=== PATIENT | male | born 1960 | race Hispanic/Latino ===

== ENCOUNTER 2019-08-16 19:08 | Inpatient (IN) | payer MEDICARE, OTHER ==
[~2019-08-16] VITALS: Ht 165.1 cm; Wt 77.1 kg
--- OUTSIDE RECORDS SUMMARY | 2019-08-16 19:30 | XMS REPORT ---
[facility] [place] Address Unknown Phone Unavailable Care Team Providers Care Compound Filler Name Role Phone Unavailable Unavailable Payers Payer Name Policy Type Policy Number Effective Date Expiration Date Problems This patient has no known problems. Allergies, Adverse Reactions, Alerts Allergy Name Allergy Type Status Severity Reaction(s) Onset Date Inactive Date Treating Clinician Comments No Known Allergies DA Active U 2019-08-16 00:00:00 No Known Allergies DA Active U 2013-09-17 00:00:00 Medications This patient has no known medications. Results Test Description Test Time Test Comments Text Results Atomic Results Result Comments - CTA NECK 2019-08-16 18:13:00 Name: BRENT POWELL [facility] FSED : 1960 Age/S: 59 / M [address] [facility] Unit #: [id number] Loc: [address] Phys: Luis Li MD [place], [place] [address] Acct: [id number] Dis Date: Status: REG ER PHONE #: Exam Date: 08/16/2019 1549 FAX #: Reason: stroke EXAMS: CPT CODE: [id number] CTA NECK 25928 HISTORY: stroke TECHNIQUE: Cerebral and Cervical CT angiography was acquired in the axial plane after bolus IV administration of iodinated contrast. Multiplanar, maximum intensity projection (MIP), and volume rendered reconstructions were created on the 3-D workstation. Automated exposure control for dose reduction. COMPARISON: Noncontrast CT brain earlier today at 1:44 PM FINDINGS: Bilateral distal cervical ICAs are patent. Mild atherosclerotic vascular calcification of the bilateral cavernous ICA segments. Bilateral petrous and supraclinoid ICA segments are patent. Normal enhancement of the bilateral ophthalmic arteries. Bilateral A1 and distal SANCHEZ segments are patent. Anterior communicating artery is present. Bilateral M1 and distal MCA branches are patent. No aneurysm. Bilateral distal vertebral arteries are patent. Basilar artery is patent. Bilateral PICAs and SCAs are patent. Normal appearance of the basilar tip. Bilateral P1 and distal SHOE PARTS CASER segments are patent. Bilateral posterior communicating arteries are present however the right posterior commuting artery is hypoplastic. No aneurysm. Dural venous sinuses and proximal internal jugular veins are patent. Reversal of cervical lordosis is present. However there is no acute fracture or spondylolisthesis of the cervical spine. Please see the prior noncontrast CT scan of the brain for additional nonvascular findings. IMPRESSION: Hypoplastic right posterior communicating artery. Otherwise normal CT angiography of the head and neck. Location: [facility] at 1813 Reported and signed by: Ron Fleming MD PAGE 1 Signed Report (CONTINUED) Name: BRENT POWELL FSED : 1960 Age/S: 59 / M [address] [facility] [address] Unit #: [id number] Loc: [address] Phys: Luis Li MD [place] [address] Acct: [id number] Dis Date: Status: REG ER PHONE #: Exam Date: 08/16/2019 1544 FAX #: Reason: stroke EXAMS: CPT CODE: [id number] CTA NECK 50428 <Continued> CC: Luis Li MD Technologist:Sae Thapa CTDI: DLP: Trnscb Date/Time: 08/16/2019 (1812) t.[email or web address].RR31/[email or web address].RR31 Orig Print D/T: S: 08/16/2019 (1815) PAGE 2 Signed Report - CTA HEAD 2019-08-16 18:13:00 Name: BRENT POWELL [employer] FSED : 1960 Age/S: 59 / M [address] [facility] [address] Unit #: [id number] Loc: [address] Phys: Luis Li MD [place], [place] [address] Acct: [id number] Dis Date: Status: REG ER PHONE #: Exam Date: 08/16/2019 1544 FAX #: Reason: stroke EXAMS: CPT CODE: [id number] CTA HEAD 15575 HISTORY: stroke TECHNIQUE: Cerebral and Cervical CT angiography was acquired in the axial plane after bolus IV administration of iodinated contrast. Multiplanar, maximum intensity projection (MIP), and volume rendered reconstructions were created on the 3-D workstation. Automated exposure control for dose reduction. COMPARISON: Noncontrast CT brain earlier today at 1:44 PM FINDINGS: Bilateral distal cervical ICAs are patent. Mild atherosclerotic vascular calcification of the bilateral cavernous ICA segments. Bilateral petrous and supraclinoid ICA segments are patent. Normal enhancement of the bilateral ophthalmic arteries. Bilateral A1 and distal SANCHEZ segments are patent. Anterior communicating artery is present. Bilateral M1 and distal MCA branches are patent. No aneurysm. Bilateral distal vertebral arteries are patent. Basilar artery is patent. Bilateral PICAs and SCAs are patent. Normal appearance of the basilar tip. Bilateral P1 and distal SHOE PARTS CASER segments are patent. Bilateral posterior communicating arteries are present however the right posterior commuting artery is hypoplastic. No aneurysm. Dural venous sinuses and proximal internal jugular veins are patent. Reversal of cervical lordosis is present. However there is no acute fracture or spondylolisthesis of the cervical spine. Please see the prior noncontrast CT scan of the brain for additional nonvascular findings. IMPRESSION: Hypoplastic right posterior communicating artery. Otherwise normal CT angiography of the head and neck. Location: [facility] at 1813 Reported and signed by: Ron Fleming MD PAGE 1 Signed Report (CONTINUED) Name: BRENT POWELL [facility] FSED : 1960 Age/S: 59 / M [address] [facility] Unit #: [id number] Loc: [address] Phys: Luis Li MD [place], [place] [address] Acct: [id number] Dis Date: Status: REG ER PHONE #: Exam Date: 08/16/2019 1541 FAX #: Reason: stroke EXAMS: CPT CODE: [id number] CTA HEAD 23131 <Continued> CC: Luis Li MD Technologist:Sae Thapa CTDI: DLP: Trnscb Date/Time: 08/16/2019 (1813) t.[email or web address].RR31/[email or web address].SDR.RR31 Orig Print D/T: S: 08/16/2019 (0817) PAGE 2 Signed Report BASIC METABOLIC PANEL 2019-08-16 15:00:00 SODIUM (test code=NA) 145 mmol/L 128-145 POTASSIUM (test code=K) 3.7 mmol/L 3.5-5.1 CHLORIDE (test code=CL) 107.0 mmol/L 98-107 CARBON DIOXIDE (test code=CO2) 29.8 mmol/L 22-29 ANION GAP (test code=GAP) 12 mmol/L 10-20 GLUCOSE (test code=GLU) 108 mg/dL 70-110 BLOOD UREA NITROGEN (test code=BUN) 16 mg/dL 7-22 GLOMERULAR FILTRATION RATE (test code=GFR) > 60 mL/min >=60 Estimated GFR by using Modified MDRD formula.Chronic kidney disease is defined as either kidney damageor GFR <60 mL/min/1.73 m2 for >3 months. CREATININE (test code=CREAT) 1.15 mg/dL 0.55-1.3 BUN/CREATININE RATIO (test code=BUN/CREA) 13.9 10-20 CALCIUM (test code=CA) 8.3 mg/dL 8.0-10.5 [id number] 15:00:00* Test Item Value Reference Range Comments TROPONIN-I (test code=TROPI) <0.015 ng/mL 0.00-0.056 BASIC METABOLIC [id number] 14:11:00* Test Item Value Reference Range Comments SODIUM (test code=NA) 145 mmol/L 128-145 POTASSIUM (test code=K) 3.7 mmol/L 3.5-5.1 CHLORIDE (test code=CL) 107.0 mmol/L 98-107 CARBON DIOXIDE (test code=CO2) 29.8 mmol/L 22-29 ANION GAP (test code=GAP) 12 mmol/L 10-20 GLUCOSE (test code=GLU) 108 mg/dL 70-110 BLOOD UREA NITROGEN (test code=BUN) 16 mg/dL 7-22 GLOMERULAR FILTRATION RATE (test code=GFR) > 60 mL/min >=60 Estimated GFR by using Modified MDRD formula.Chronic kidney disease is defined as either kidney damageor GFR <60 mL/min/1.73 m2 for >3 months. CREATININE (test code=CREAT) 1.15 mg/dL 0.55-1.3 BUN/CREATININE RATIO (test code=BUN/CREA) 13.9 10-20 CALCIUM (test code=CA) 8.3 mg/dL 8.0-10.5 [id number] 14:11:00* Test Item Value Reference Range Comments TROPONIN-I (test code=TROPI) ng/mL 0-0.045 CBC W/AUTO [id number] 14:10:00* Test Item Value Reference Range Comments WHITE BLOOD CELL (test code=WBC) 9.4 K/mm3 4.5-12.5 RED BLOOD CELL (test code=RBC) 5.30 mill/mm3 4.0-5.8 HEMOGLOBIN (test code=HGB) 16.0 gram/dL 13.0-17.5 HEMATOCRIT (test code=HCT) 48.9 % 42.0-52.0 MEAN CELL VOLUME (test code=MCV) 92.3 fL 80-98 MEAN CELL HGB (test code=MCH) 30.2 picogram 27.0-33.0 MEAN CELL HGB CONCETRATION (test code=MCHC) 32.7 gram/dL 33.0-36.0 RED CELL DISTRIBUTION WIDTH (test code=RDW) 14.1 % 11.6-16.2 RED CELL DISTRIBUTION WIDTH SD (test code=RDW-SD) 48.8 fL 37.0-51.0 PLATELET COUNT (test code=PLT) 210 K/mm3 150-450 MEAN PLATELET VOLUME (test code=MPV) 9.3 fL 6.7-11.0 NEUTROPHIL % (test code=NT%) 69.9 % 39.0-69.0 LYMPHOCYTE % (test code=LY%) 24.2 % 25.0-55.0 MONOCYTE % (test code=MO%) 4.9 % 0.0-10.0 EOSINOPHIL % (test code=EO%) 0.3 % 0.0-5.0 BASOPHIL % (test code=BA%) 0.5 % 0.0-1.0 NEUTROPHIL # (test code=NT#) 6.59 K/mm3 1.8-7.7 LYMPHOCYTE # (test code=LY#) 2.28 K/mm3 1.0-5.0 MONOCYTE # (test code=MO#) 0.46 K/mm3 0-0.8 EOSINOPHIL # (test code=EO#) 0.03 K/mm3 0.0-0.5 BASOPHIL # (test code=BA#) 0.05 K/mm3 0.0-0.2 MANUAL DIFF REQUIRED (test code=MDIFF) NO PROTHROMBIN [id number] 14:10:00* Test Item Value Reference Range Comments PROTHROMBIN TIME PATIENT (test code=PTP) 9.9 seconds 9.0-13.0 INTERNATIONAL NORMAL RATIO (test code=INR) 1.0 0.8-1.2 The therapeutic range for oral anticoagulant therapy formost indications is an international normalized ratio (INR)of between 2.0 and 3.0. The recommended therapeutic INRrange for various clinical situations is listed below: Clinical Situation INR range Pulmonary e mbolism treatment (2.0-3.0)Venous thrombosis treatmentVenous thrombosis prophylaxis (high risk surgery)Prevention of systemic embolism from: Acute myocardial infarction Valvular heart disease Atrial fibrillation Mechanical prosthetic heart valves (2.5-3.5) IS PATIENT ON ANTICOAGULANTS? NTHROMBOPLASTIN TIME [id number] 14:10:00* Test Item Value Reference Range Comments THROMBOPLASTIN TIME PARTIAL (test code=PTT) 25.3 seconds 25.5-34.3 Therapeutic Range for patients on Heparin Therapy is 2 to2.5 times their baseline PTT level. IS PATIENT ON ANTICOAGULANTS? N- XR CHEST 1 [id number] 14:06:00 FAX: Luis Li [phone] [place]: [place] [address]: REG Name: BRENT ASHTON FSED : [birth year] Age/S: 59/M [address] [facility] [address] Unit #: [id number] Loc: [facility] [address] Phys: Luis Li MD [place], [place] [address] Acct: [id number] Dis Date: Status: REG ER PHONE #: Exam Date: 08/16/2019 1350 FAX #: Reason: CODE STROKE EXAMS: CPT CODE: [id number] XR CHEST 1 V 44709 REASON FOR EXAM: CODE STROKE Exam Order Date: 08/16/2019 1:42 PM Ordering M.D.: Luis Li MD PROCEDURE: - XR CHEST 1 V COMPARISON: None FINDINGS: The lungs are clear. There is no pleural effusion or pneumothorax. Pulmonary vascularity is within normal limits. Cardiomediastinal silhouette is normal in size for technique. The mediastinal contours are within normal limits. Musculoskeletal structures are within normal limits. The visuali zed upper abdomen is within normal limits. IMPRESSION: No acute cardiopulmonary process. Location: [facility] at 1406 Reported and signed by: Ron Fleming MD CC: Luis Li MD Technologist: Sae Thapa Trnscrd Date/Time/By: 08/16/2019 (5670) : By: Dior [id number] Orig Print D/T: S: 08/16/2019 (3099) HERMINIA GUERRIER 1 Signed Report - CT HEAD/BRAIN W/O [id number] 13:56:00 Name: BRENT POWELL FSED : 1960 Age/S: 59 / M [address] [facility] [address] Unit #: [id number] Loc: [address] Phys: Luis Li MD [place], [place] [address] Acct: [id number] Dis Date: Status: PRE ER PHONE #: Exam Date: 08/16/2019 1350 FAX #: Reason: stroke EXAMS: CPT CODE: [id number] CT HEAD/BRAIN W/O CONT 33795 HISTORY: Stroke. COMPARISON: None available. CT brain without contrast: Automated exposure control. No acute intracranial bleeds or extra-axial collections are noted. No acute territorial vascular infarction is noted. Old infarct in the posterior limb of the left internal capsule without mass effect. The sulci, gyri, ventricles and subarachnoid spaces and the basilar cisterns are normal for patient's age. No herniation or hydrocephalus or midline shift is noted. Mild periventricular ischemic gliosis is noted. Age- appropriate atrophy is noted as well. Portions of the visualized paranasal sinuses are normal. No obvious bony calvarial defect is noted. IMPRESSION: No acute intracranial bleeds or extra-axial collections. No acute territorial vascular infarction. No herniation or hy drocephalus or midline shift. Chronic white matter ischemic d isease and atrophy . These findings were discussed with Dr. Ruben anderson at 1:54 PM. FOR INTERNAL CODING PUR POSES ONLY RESULT CODE: CVR Electronically S igned by Demond Lorenz on 08/16/2019 at 1356 Reporte d and signed by: Joni Lorenz M.D. PAGE 1 Sign ed Report (CONTINUED) Name: BRENT POWELL [facility] FSED : 1960 Age/S: 59 / M [address] [facility] [address] Unit #: [id number] Loc: [address] Phys: Luis Li MD [place], [place] [address] Acct: [id number] Dis Date: Status: PRE ER PHONE #: Exam Date: 08/16/2019 1350 FAX #: Reason: stroke EXAMS: CPT CODE: [id number] CT HEAD/BRAIN W/O CONT 73321 <Continued> CC: Luis Li MD Technologist:Sae Thapa CTDI: DLP: Trnscb Date/Time: 08/16/2019 (0536) t.KLAUSR.TH4 Orig Print D/T: S: 08/16/2019 (3334) PAGE 2 Signed Report
[2019-08-16 19:45] VITALS: BP 161/103
[2019-08-16] MEDS ORDERED: DEXTROSE 50% SYRINGE 50 ML IV PRN (19:45)
[2019-08-16 20:00] VITALS: BP 143/94
[2019-08-16 20:01] LABS: BASOPHILS # (AUTO) 0.1 (0.0-0.1); BASOPHILS % 0.6 % (0.0-1.0); EOSINOPHILS % 0.4 % (0.0-6.0); HEMATOCRIT 47.6 % (38.2-49.6); HEMOGLOBIN 15.3 g/dL (14.0-18.0); LYMPHOCYTES # (AUTO) 3.2 (1.0-3.2); LYMPHOCYTES % 37.1 % (18.0-39.1); MEAN CORPUSCULAR HEMOGLOBIN 29.8 pg (28-32); MEAN CORPUSCULAR HGB CONC 32.1 g/dL (31-35); MEAN CORPUSCULAR VOLUME 92.6 fL (81-99); MONOCYTES # (AUTO) 0.5 (0.2-0.8); MONOCYTES % 5.8 % (4.4-11.3); NEUTROPHILS # (AUTO) 4.8 (2.1-6.9); NEUTROPHILS % 55.9 % (38.7-80.0); PLATELET COUNT 223 x10e3/uL (140-360); RED BLOOD COUNT 5.14 x10e6/uL (4.3-5.7); RED CELL DISTRIBUTION WIDTH 14.2 % (11.7-14.4)
[2019-08-16 20:13] VITALS: BP 140/102
[2019-08-16] MEDS: SODIUM CHLORIDE 0.9% 1000ML 1,000 ML IV SCH (20:14)
[2019-08-16 20:22] LABS: ALBUMIN 3.5 g/dL (3.5-5.0); ALBUMIN/GLOBULIN RATIO 1.1 (0.8-2.0); ANION GAP 14.7 mmol/L (8-16); CALCIUM 9.5 mg/dL (8.4-10.2); CHOL/HDL RATIO 4.3 (3.9-4.7); CREATININE, SERUM 2.53 mg/dL (0.72-1.25); POTASSIUM 3.7 mmol/L (3.5-5.1)
--- NOTE | 2019-08-16 20:26 | Diagnostic Imaging Report ---
Examination: Single AP view of the chest. COMPARISON: None. INDICATION: Ischemic stroke DISCUSSION: Lines/tubes: None. Lungs: The lungs are well inflated and clear. No pneumonia or pulmonary edema. Pleura: No pleural effusion or pneumothorax. Heart and mediastinum: The heart and the mediastinum are unremarkable. Bones and soft tissues: No acute bony abnormalities. IMPRESSION: 1. No acute cardiopulmonary abnormalities. Signed by: Dr. Ryan Abbasi M.D. on 08/16/2019 8:23 PM
[2019-08-16 20:42] LABS: ERYTHROCYTE SEDIMENTATION RATE 6 mm/hr (0-13); THYROID STIMULATING HORMONE 1.995 uIU/mL (0.350-4.940)
[2019-08-16 21:00] VITALS: BP 144/96
[2019-08-16] MEDS ORDERED: INSULIN LISPRO 100 UNIT/1 ML 3ML VIAL SQ SCH (21:00)
[2019-08-16 22:00] VITALS: BP 144/89
[2019-08-16] MEDS ORDERED: LISINOPRIL20 MG PO (22:58)
[2019-08-16] MEDS ORDERED: XULTOPHY 100 UNI3 ML SQ (22:58)
[2019-08-16] MEDS ORDERED: LIPITOR20 MG PO (22:58)
[2019-08-16] MEDS ORDERED: REGLAN10 MG PO (22:58)
[2019-08-16 23:00] VITALS: BP 132/92
[2019-08-17] VITALS (19 sets, daily range): BP systolic 102–154; BP diastolic 59–99
[2019-08-17 00:37] LABS: CREATINE KINASE MB 0.8 ng/mL (0-5.0)
[2019-08-17 04:49] LABS: BASOPHILS % 0.6 % (0.0-1.0); EOSINOPHILS # (AUTO) 0.1 (0.0-0.4); EOSINOPHILS % 1.3 % (0.0-6.0); HEMATOCRIT 44.7 % (38.2-49.6); HEMOGLOBIN 14.5 g/dL (14.0-18.0); LYMPHOCYTES # (AUTO) 3.1 (1.0-3.2); LYMPHOCYTES % 43.3 % (18.0-39.1); MEAN CORPUSCULAR HEMOGLOBIN 30.1 pg (28-32); MEAN CORPUSCULAR HGB CONC 32.4 g/dL (31-35); MEAN CORPUSCULAR VOLUME 92.7 fL (81-99); MONOCYTES # (AUTO) 0.6 (0.2-0.8); MONOCYTES % 8.1 % (4.4-11.3); NEUTROPHILS # (AUTO) 3.3 (2.1-6.9); NEUTROPHILS % 46.6 % (38.7-80.0); PLATELET COUNT 226 x10e3/uL (140-360); RED BLOOD COUNT 4.82 x10e6/uL (4.3-5.7); RED CELL DISTRIBUTION WIDTH 14.1 % (11.7-14.4)
[2019-08-17 05:15] LABS: ALANINE AMINOTRANSFERASE 22 IU/L (0-55); ALBUMIN 3.1 g/dL (3.5-5.0); ALBUMIN/GLOBULIN RATIO 1.1 (0.8-2.0); ALKALINE PHOSPHATASE 64 IU/L (40-150); ANION GAP 15.2 mmol/L (8-16); BLOOD UREA NITROGEN 11 mg/dL (7-26); BUN/CREATININE RATIO 10 (6-25); CALCIUM 9.2 mg/dL (8.4-10.2); CARBON DIOXIDE 26 mmol/L (22-29); CHLORIDE 111 mmol/L (98-107); CREATININE, SERUM 1.06 mg/dL (0.72-1.25); EST GLOMERULAR FILTRATION RATE > 60 ML/MIN (60-); GLUCOSE 104 mg/dL (74-118); POTASSIUM 4.2 mmol/L (3.5-5.1); SODIUM 148 mmol/L (136-145)
[2019-08-17 05:21] LABS: CREATINE KINASE MB 1.8 ng/mL (0-5.0)
[2019-08-17] MEDS: SODIUM CHLORIDE 0.9% 1000ML 1,000 ML IV SCH ×2 (06:02→16:12)
[2019-08-17] MEDS ORDERED: LISINOPRIL 20 MG TAB PO SCH (09:00)
[2019-08-17] MEDS ORDERED: METOCLOPRAMIDE HCL 10 MG TAB PO SCH (09:00)
[2019-08-17] MEDS ORDERED: DORZOLAMIDE-TIM10 ML OU (10:00)
[2019-08-17] MEDS ORDERED: AZOPT10 ML OU (10:00)
--- NOTE | 2019-08-17 11:11 | History and Physical ---
CHIEF COMPLAINT: Right-sided weakness. HISTORY OF PRESENT ILLNESS: This is a 59-year-old man who presented to an outside free-standing emergency room with sudden onset of right-sided weakness. noted facial drooping as well as weakness in his right arm in his right leg. Apparently, the patient was so weak, he could not stand. The symptoms did resolve while he was in the free-standing emergency room. The patient underwent a CT of the brain at the free-standing emergency room that revealed carotid atherosclerosis, otherwise was unremarkable. The patient, however, was found to have a slightly elevated BUN and creatinine of 16 and 1.15 respectively. The patient also underwent a CT of the brain that revealed chronic white matter ischemic disease and atrophy, otherwise was unimpressive. The patient's initial cardiac enzymes were also negative. The decision was made to transfer the patient to [facility]. On arrival to this hospital last night on August 16, 2019, the patient was found to have BUN and creatinine of 9 and 2.53 respectively. This morning's BUN and creatinine were 11 and 1.06 respectively. He did receive intravenous fluids overnight. The patient has undergone two sets of troponin I since he has been here and they have been negative. Chest x-ray performed this morning was unremarkable. The patient was found to have an LDL cholesterol 77 mg/dL. Hemoglobin A1c was 6.1%. REVIEW OF SYSTEMS: GENERAL: Weight has been stable. No fever or chills. The patient was confused yesterday, but it did resolve. HEENT: No headaches. He does have visual deficits secondary to his advanced diabetic retinopathy. He does blink his eyes excessively, but this is a chronic finding. CARDIOVASCULAR/CHEST: No chest pain. No shortness of breath or cough. No palpitations. GI: No nausea, vomiting, or constipation. : No UTI symptoms. NEUROMUSCULAR: The patient had right arm and right leg weakness as well as right facial drooping according to family members. The patient also was confused, but all these deficits resolved. ALLERGIES: NO KNOWN DRUG ALLERGIES. FAMILY HISTORY: Type 2 diabetes mellitus. SOCIAL HISTORY: He is , lives with . He is currently disabled. No history of tobacco or alcohol use. SURGICAL HISTORY: 1. Left eye shunt placement. 2. Bilateral cataract surgery. 3. Monthly ocular injections because of the patient's diabetic retinopathy. PAST MEDICAL HISTORY: 1. Type 2 diabetes mellitus (diagnosed at age 28). 2. Severe diabetic retinopathy with resulting macular edema. 3. Hypertensive heart disease. 4. Hyperlipidemia. 5. Diabetic peripheral neuropathy. 6. Mild obesity. 7. Diabetic gastroparesis. HOME MEDICATIONS: 1. Lisinopril 20 mg daily. 2. Atorvastatin 80 mg at bedtime. 3. Combigan 0.2%/0.5% one drop to both eyes twice a day. 4. Xultophy (Tresiba/Victoza) 50 units/1.8 mg subcutaneous daily (this is a new medication). 5. Metoclopramide 5 mg p.o. t.i.d. (the patient has not started this medication yet). PHYSICAL EXAMINATION: GENERAL: He is awake. He is alert. He seems to be at his cognitive state. Mental status seemed to be his baseline. VITAL SIGNS: The patient's weight is 170 pounds. Height is 5 feet 5 inches. BMI is 30. Blood pressure at this time is 148/96, pulse is 92, respiratory rate is 22, oxygen saturation 98% on room air, and temperature is 97.8. INTEGUMENT: Skin is warm and dry. No pallor, jaundice, or diaphoresis. HEENT: Anicteric sclerae. Moist mucous membranes. No facial drooping or dysarthria is appreciated. He does blink his eyes excessively. This is a chronic finding. NECK: Supple. No evidence of jugular venous distention. CARDIOVASCULAR: Distant heart sounds. Tachycardic rate with regular rhythm. The patient has an S4 gallop. LUNGS: No rales. No rhonchi. No wheezes. ABDOMEN: Mildly obese, but benign. EXTREMITIES: No edema or deformity. NEUROLOGIC: He has normal gait. No cerebellar deficits appreciated. No obvious dysdiadochokinesia. The patient has intact zhlmmx-ek-oncs. Negative Romberg sign. The patient has some difficulty with louxkf-ev-hqov, but it is probably compromised due to his visual deficits. He has no pinprick sensation to plantar aspect of his bilateral feet, but this is a chronic finding. DIAGNOSES: 1. Transient ischemic attack, likely. 2. Hypertensive heart disease. 3. Type 2 diabetes mellitus. 4. Diabetic peripheral neuropathy. 5. Diabetic retinopathy (severe). 6. Diabetic gastroparesis. 7. Acute renal insufficiency, resolving. 8. Dyslipidemia. PLAN: 1. Consult neurology. 2. Order 2D echocardiogram. 3. Order carotid Doppler ultrasound. 4. Gentle intravenous fluids. 5. Hold lisinopril since he did experience acute renal insufficiency. 6. We will continue statin therapy in the form atorvastatin. 7. We will likely order MRI of the brain. I spent 75 minutes in the care of this intensive care unit patient. MD CLOVER Cochran/CHRISTOPH /[id number] MTDD
--- NOTE | 2019-08-17 12:01 | Consultation ---
DATE OF CONSULTATION: Critical Care Consultation REASON FOR CONSULT: ICU management. HISTORY OF PRESENT ILLNESS: Mr. Guzmán is a 59-year-old male, who presented to the free-standing ER with complaints of right-sided facial droop, unable to talk. The patient was brought in by his . The patient has dysarthria, facial droop. Right-sided weakness, however, all symptoms are resolved now. His saw the patient at 8 a.m. in the morning and he was normal and then she slept again and next time she saw the patient around noon with these symptoms. He denies any nausea, vomiting, or diarrhea. He has a history of diabetes and hypertension with diabetic neuropathy, retinopathy, glaucoma, and cataract. REVIEW OF SYSTEMS: GENERAL: Denies any fever or chills. HEAD: Denies any head trauma. ENT: Denies any earaches. CVS: Denies any chest pain. RESPIRATORY: Denies any shortness of breath. GI: Denies any nausea or vomiting. The rest of the review of systems are negative except as in HPI. PAST MEDICAL HISTORY: Hypertension, diabetes, hyperlipidemia, glaucoma, cataract, peripheral neuropathy. FAMILY AND SOCIAL HISTORY: He does not smoke. Does not drink. PHYSICAL EXAMINATION: VITAL SIGNS: Temperature 97.8, pulse of 94, blood pressure 147/95, respiratory rate of 18, and O2 saturation 97% on room air. HEENT: Head is atraumatic, normocephalic. The patient is legally blind in both eyes and has eyelid drooping and frequent blinking of the eyes. NECK: Supple. No JVD. Oral mucosa is dry. CHEST: Clear to auscultation bilaterally. No wheezing. No crackles. HEART: S1, S2 audible. ABDOMEN: Soft, nontender. EXTREMITIES: No clubbing, cyanosis, or edema. NEUROLOGICAL: He is awake, alert, following commands. Responds to questions appropriately. LABORATORY DATA: White count of 7000, hemoglobin 14.5. Chemistry is within normal limits. Troponin is normal. The patient had a workup done at [facility], his CT head was normal. The patient had a CT of the neck, which was negative as well. ASSESSMENT AND PLAN: A 59-year-old male presented with possible transient ischemic attack, stroke. CT head is negative. Currently, the patient is asymptomatic. PLAN: Neurology consult. Physical therapy evaluation and treatment. The patient is already on Lipitor and lisinopril. Okay to be transferred out of ICU if okay with other services. CC time spent 40 min MD PETER Douglas/CHRISTOPH /[id number] SHELBY
[2019-08-17 12:45] LABS: CREATINE KINASE MB 1.8 ng/mL (0-5.0)
--- NOTE | 2019-08-17 13:35 | NUR ---
PERIODS OF APNEA NOTED WHEN SLEEPING
--- NOTE | 2019-08-17 13:59 | NUR ---
PT DISCUSSED IN ROUNDS, MED SURG DOWN GRADE ORDER GIVEN, DR CHURCHILL TO SEE PT TONIGHT FOR POSSIBLE TIA, CONSULT FOR SHUI WITH DOPPLER AND ECHO FROM THIS MORNING.
[2019-08-17] MEDS: INSULIN LISPRO 100 UNIT/1 ML 3ML VIAL SQ SCH ×2 (15:32→21:05)
--- NOTE | 2019-08-17 16:00 | NUR ---
patient on portable radiation monitor. awaiting call back when room 208 clean for transfer
[2019-08-17] MEDS: FAMOTIDINE 20 MG TAB PO SCH (17:00)
[2019-08-17] MEDS: BRINZOLAMIDE 1% OPTH SUSP 10 ML BTL OU SCH (17:00)
[2019-08-17] MEDS ORDERED: DORZOLAMIDE/TIMOLOL/PF 1 EACH DROPERETTE OP SCH (17:00)
[2019-08-17] MEDS ORDERED: ENOXAPARIN SOD INJ 40 MG/0.4 ML SYR SC SCH (17:00)
[2019-08-17] MEDS: DORZOLAMIDE/TIMOLOL (OPTH SOL) 10 ML DRPETTE OP SCH (17:00)
[2019-08-17] MEDS ORDERED: NON-FORMULARY MEDICATION (Dorzolamide Hcl/Timolol Maleat (Dorzolamide-Timolol Eye Drops) 1 OU SCH (17:00)
[2019-08-17] MEDS ORDERED: ATORVASTATIN 40 MG TAB PO SCH (21:00)
[2019-08-17] MEDS ORDERED: ATORVASTATIN 20 MG TAB PO SCH (21:00)
[2019-08-18] VITALS: BP 156/103
--- NOTE | 2019-08-18 03:31 | Consultation ---
DATE OF CONSULTATION: 08/17/2019 Neurology Consult Note HISTORY OF PRESENT ILLNESS: Mr. Olivia is a 59-year-old man with multiple vascular risk factors, admitted to [facility] as an inpatient on August 16, 2019, with symptoms suspicious for stroke. Mr. Olivia was last seen in his usual state of health at approximately 0800 on 08/16/2019. After the patient's awoke to use the restroom, she noted dysarthria, expressive aphasia, right hemiparesis affecting the face, arm, and leg, poor balance, and gait impairment in Mr. Olivia. It is unknown if there was a visual field cut or other disturbance as the patient is legally blind due to diabetic retinopathy. Mr. Olivia does not report numbness, dizziness, confusion, or headache associated with the above symptoms. Within 1.5 to 2 hours, the patient's brought Mr. Olivia to a [facility] for further evaluation of his symptoms. Reportedly, the patient's symptoms improved while he was in the emergency center. However, the symptoms did not resolve. Mr. Olivia's reports the patient continued to have moderately dysarthric speech and a right facial droop while in the [facility]. Due to presentation outside the window for intravenous thrombolytics, Mr. Olivia was not treated with intravenous tPA. He was subsequently transferred to [facility] as an inpatient for further evaluation and treatment of his symptoms. Mr. Olivia has not experienced similar symptoms previously. The patient does not take an antiplatelet or anticoagulant medication at home. REVIEW OF SYSTEMS: Loss of vision (chronic), dysarthria, expressive aphasia, right facial weakness, weakness of the right arm and leg, poor balance, impairment of gait. Otherwise, a 12-point review of systems is negative. PAST MEDICAL HISTORY: Hypertension, hyperlipidemia, diabetes mellitus type 2 complicated by retinopathy, gastroparesis, and peripheral neuropathy, coronary artery disease, obesity. PAST SURGICAL HISTORY: Bilateral cataract removal, left eye shunt placement, intra-ocular injections monthly for diabetic retinopathy. PAST HOSPITALIZATIONS: Surgeries/procedures as listed. FAMILY MEDICAL HISTORY: Diabetes mellitus type 2. SOCIAL HISTORY: Mr. Olivia is . He is on disability. There is no reported current smoking, alcohol use, or use of recreational substances. HOME MEDICATIONS: Reviewed. Please see the list of home medications available in the electronic medical record. HOSPITAL MEDICATIONS: Reviewed. Please see list of hospital medications available in the electronic medical record. ALLERGIES: NO KNOWN DRUG ALLERGIES. NO KNOWN FOOD ALLERGIES. NO KNOWN ALLERGIES TO LATEX. NO KNOWN ALLERGIES TO IODINE OR OTHER CONTRAST MATERIALS. PHYSICAL EXAMINATION: VITAL SIGNS: Height 65 inches, weight 170 pounds, BMI 28.29 kg/m2. Blood pressure 129/93 mmHg, pulse 88 beats per minute, respiratory rate 14 breaths per minute, and oxygen saturation 100% on room air. GENERAL: The patient is awake and alert, does not appear distressed. Overweight. HEENT: Normocephalic, atraumatic. Pupils are surgical. Moist mucous membranes. NECK: Supple. No appreciable thyromegaly. No appreciable carotid bruits. CARDIOVASCULAR: S1 and S2. Regular rate and rhythm. No murmurs, rubs, or gallops. RESPIRATORY: Clear to auscultation bilaterally. No wheezes, rhonchi, or rales. EXTREMITIES: The skin is warm and dry. No clubbing, cyanosis, or edema. The posterior tibial and dorsalis pedis pulses are 1+ and symmetric. SKIN: No rashes or lesions. NEUROLOGIC: Memory/Attention: The patient is awake and alert. Orientation cannot be assessed secondary to dysarthria and expressive aphasia. Cranial Nerves: Cranial nerve I-not tested. Cranial nerve II, III, IV, and - pupils are surgical. Extraocular movements are grossly intact. No nystagmus. Cranial nerve V-sensation to light touch and pinprick is intact in the bilateral V1 through V3 distributions. Strength in the temporalis and masseter muscles is within normal limits. Cranial nerve VII-the face is asymmetric on the right as are all facial movements. Mild right central facial weakness is appreciated. Cranial nerve VIII-hearing is intact to finger rub bilaterally. Cranial nerve IX, X-the soft palate elevates equally and symmetrically. Cranial nerve XI-normal strength of the bilateral sternocleidomastoid and trapezius muscles. Cranial nerve XII-the tongue protrudes midline and moves symmetrically from [id number]. Strength: Bulk is mildly diminished throughout. Strength is 5/5 in left deltoid, triceps, biceps, brachioradialis, wrist flexors and extensors, finger flexors and extensors, intrinsic hand muscles, bilateral hip flexors, bilateral knee flexors and extensors, bilateral ankle dorsiflexion and plantar flexion, and bilateral intrinsic foot muscles. Tone is normal in the left arm and both legs. The right arm flexors are approximately 4+/5. The right arm extensors are approximately 4/5. Tone is mildly decreased in the right arm. DTRs: Deep tendon reflexes are 1+ and symmetric at the triceps and biceps. Deep tendon reflexes are trace and symmetric at the brachioradialis. Deep tendon reflexes are absent and symmetric at the patellas and Achilles. Plantar responses are flexor bilaterally. Sensation: Sensation is intact to light touch and pinprick in both arms and both legs. Cerebellar: [id number] and heel-dean movements mildly impaired in the right arm, but this is within the bounds of paresis. Gait: Deferred. Speech: Spontaneous speech is moderately dysarthric with moderate expressive aphasia. Involuntary Movements: None. Pronator Drift: Right arm. LABORATORY DATA: Reviewed. All results are incorporated by reference. DIAGNOSTIC STUDIES: Electrocardiogram on 08/16/2019: Normal sinus rhythm at 79 beats per minute. Echocardiogram on 08/17/2019: The ejection fraction is 40%. Concentric left ventricular hypertrophy. Trace mitral regurgitation. Bilateral carotid artery ultrasound with Doppler on 08/17/2019: There is no atherosclerosis in either carotid artery system. Flow is antegrade in the bilateral vertebral arteries. All other diagnostic studies have been reviewed and are incorporated by reference. ASSESSMENT AND PLAN: Mr. Olivia is a 59-year-old man with multiple vascular risk factors, admitted to [facility] as an inpatient on August 16, 2019, with a probable ischemic stroke in the left middle cerebral artery distribution. The patient's neurological examination is significant for moderate dysarthria and expressive aphasia as well as mild right facial weakness and mild right arm weakness. The patient's laboratory data and other diagnostic studies have been reviewed and are documented above. RECOMMENDATIONS: Are as follows: 1. An MRI of the brain without contrast will be ordered to complete stroke evaluation. 2. Aspirin 325 mg by mouth daily will be prescribed for stroke prophylaxis. 3. The patient is more than 24 hours status post stroke. His blood pressures have normalized without medications. Continue to monitor vital signs per unit protocol. The patient's goal blood pressure prior to discharge is less than 140/90 mmHg. 4. The patient's goal total cholesterol is less than 200 with an LDL of less than 70. The patient's total cholesterol is at goal. His LDL is 77. Continue treatment with the patient's home medication of atorvastatin 40 mg by mouth at bedtime daily. 5. The patient's goal hemoglobin A1c is less than 7.0. Mr. Olivia's hemoglobin A1c is 6.1. Tight glycemic control is recommended while the patient is hospitalized. Continue sliding scale insulin per unit protocol. 6. Speech and Physical Therapy consultations will be ordered. 7. Gastrointestinal prophylaxis with Pepcid 20 mg by mouth twice daily with meals. Deep venous thrombosis prophylaxis with Lovenox 40 mg subcutaneously daily. 8. Defer treatment of the remaining medical comorbidities to the primary and other services following the patient. 9. Anticipated discharge: Pending. In my opinion, the patient will likely require transfer to a long term facility, possibly inpatient rehab, within 2 to 3 days. Thank you for this consultation. I will continue to follow the patient while he remains in the hospital. TIME SPENT: 70 minutes. Meli Oliva MD CP/CHRISTOPH /[id number] MTDJoe
[2019-08-18 04:00] VITALS: BP 141/93
[2019-08-18 05:35] LABS: BASOPHILS # (AUTO) 0.1 (0.0-0.1); BASOPHILS % 0.7 % (0.0-1.0); EOSINOPHILS # (AUTO) 0.1 (0.0-0.4); EOSINOPHILS % 1.2 % (0.0-6.0); HEMATOCRIT 44.8 % (38.2-49.6); HEMOGLOBIN 14.9 g/dL (14.0-18.0); LYMPHOCYTES # (AUTO) 2.8 (1.0-3.2); LYMPHOCYTES % 34.9 % (18.0-39.1); MEAN CORPUSCULAR HEMOGLOBIN 30.4 pg (28-32); MEAN CORPUSCULAR HGB CONC 33.3 g/dL (31-35); MEAN CORPUSCULAR VOLUME 91.4 fL (81-99); MONOCYTES # (AUTO) 0.6 (0.2-0.8); NEUTROPHILS # (AUTO) 4.5 (2.1-6.9); NEUTROPHILS % 56.1 % (38.7-80.0); PLATELET COUNT 190 x10e3/uL (140-360); RED CELL DISTRIBUTION WIDTH 13.7 % (11.7-14.4)
[2019-08-18 05:54] LABS: ALANINE AMINOTRANSFERASE 20 IU/L (0-55); ALBUMIN 2.9 g/dL (3.5-5.0); ALBUMIN/GLOBULIN RATIO 1.1 (0.8-2.0); ALKALINE PHOSPHATASE 62 IU/L (40-150); ANION GAP 12.6 mmol/L (8-16); BLOOD UREA NITROGEN 12 mg/dL (7-26); BUN/CREATININE RATIO 13 (6-25); CALCIUM 8.6 mg/dL (8.4-10.2); CARBON DIOXIDE 23 mmol/L (22-29); CHLORIDE 110 mmol/L (98-107); CREATININE, SERUM 0.95 mg/dL (0.72-1.25); EST GLOMERULAR FILTRATION RATE > 60 ML/MIN (60-); GLUCOSE 100 mg/dL (74-118); POTASSIUM 3.6 mmol/L (3.5-5.1); SODIUM 142 mmol/L (136-145)
[2019-08-18] MEDS: SODIUM CHLORIDE 0.9% 1000ML 1,000 ML IV SCH (07:15)
[2019-08-18] MEDS: INSULIN LISPRO 100 UNIT/1 ML 3ML VIAL SQ SCH ×2 (07:30→11:30)
[2019-08-18 07:45] VITALS: BP 141/95
[2019-08-18 07:51] VITALS: BP 141/95
--- NOTE | 2019-08-18 08:00 | NUR ---
SPO2 88% on room air. Placed patient back on O2 2L. Notified Nadia Mcdonald NP of patient's status. Addendum: 08/18/19 at 1025 by JOHNNY JOHNSON RN error
[2019-08-18] MEDS: FAMOTIDINE 20 MG TAB PO SCH (08:39)
[2019-08-18] MEDS: DORZOLAMIDE/TIMOLOL (OPTH SOL) 10 ML DRPETTE OP SCH (08:39)
[2019-08-18] MEDS: BRINZOLAMIDE 1% OPTH SUSP 10 ML BTL OU SCH (08:39)
[2019-08-18] MEDS ORDERED: ASPIRIN 325 MG TAB EC PO SCH (09:00)
--- NOTE | 2019-08-18 10:08 | Diagnostic Imaging Report ---
MRI BRAIN WO HISTORY: Ischemic stroke COMPARISON: None. TECHNIQUE: Sagittal T2, axial T2, axial T1, axial T2/FLAIR, axial gradient echo (or susceptibility weighted), coronal T2/FLAIR, and axial diffusion weighted MR images of the brain were obtained without contrast. Motion and susceptibility artifacts obscure some details. DISCUSSION: Scalp/bone marrow: Unremarkable. Brain sulci: Appropriate for patient's age. Ventricles: Normal in size and configuration. No hydrocephalus. Extra-axial spaces: No masses or fluid collections. Parenchyma: Focal diffusion restriction (bright on DWI, dark on ADC) in the left nixon radiata extends into the left subinsular region and measures up to 2.7 cm in transverse dimension. This is compatible with acute ischemia. Suspected subcentimeter area of mild diffusion restriction (bright on DWI, dark to isointense on ADC) is seen in the left paramedian marly with associated focal T2/FLAIR hyperintensity - this area is slightly distorted by artifact on diffusion weighted imaging. No other diffusion restricting abnormalities are seen. Scattered T2/FLAIR hyperintense foci throughout the supratentorial white matter are likely chronic microvascular ischemic changes. Associated old small left striatocapsular and left inferior thalamic lacunar infarcts are present. Otherwise, no mass or hemorrhage. Vessels: Normal flow voids in major arteries and veins. Sellar/Suprasellar region: No abnormalities. Craniocervical junction: No abnormalities. Incidental findings: Bilateral ocular lens replacement. Mild bilateral maxillary sinus mucosal thickening IMPRESSION: 1. Focal acute ischemia in the left nixon radiata extends into the left subinsular region. 2. Suspected subcentimeter left paramedian pontine acute or subacute lacunar infarct. 3. No other acute intracranial abnormalities. 4. Mild supratentorial chronic microvascular ischemic change. 5. Old small left striatocapsular and left inferior thalamic lacunar infarcts. Signed by: Dr. Ha Contreras M.D. on 08/18/2019 10:05 AM
--- NOTE | 2019-08-18 10:25 | NUR ---
and aware of MRI results. See orders
[2019-08-18 11:37] VITALS: BP 149/93
--- NOTE | 2019-08-18 12:10 | NUR ---
Patient refusing inpatient rehab. states "He is refusing inpatient rehab. I can take him to outpatient rehab." notified. See orders.
--- NOTE | 2019-08-18 13:00 | NUR ---
TOOK PACKET TO OUT PATIENT THERAPY FOR OUT PT REFERRAL
[2019-08-18] MEDS ORDERED: ASPIRIN325 MG PO (13:02)
[2019-08-18] MEDS ORDERED: REGLAN5 MG PO (13:03)
--- NOTE | 2019-08-18 13:26 | NUR ---
Left AC IV discontinued. No signs of infiltration noted. 2x2 gauze and tape placed. Taken via wheelchair by PCT to personal car. Accompanied by . AAOX3 to time, person, place slow to respond. Respirations even and unlabored. Discharge instructions and all personal belongings taken with patient. NO rx available at this time. Patient's states "The only new medication is reglan. faxed rx to pharmacy last week. I need to go pick it up at my pharmacy."
--- NOTE | 2019-08-19 10:20 | NUR ---
Dictated DC summary: [id number]
--- NOTE | 2019-08-19 13:24 | Discharge Summary ---
ADMITTING DIAGNOSES: 1. Left-sided stroke, likely middle cerebral artery distribution. 2. Hypertensive heart disease. 3. Type 2 diabetes mellitus. 4. Diabetic peripheral neuropathy. 5. Diabetic retinopathy. 6. Diabetic gastroparesis. 7. Acute renal insufficiency. 8. Dyslipidemia. DISCHARGE DIAGNOSES: 1. Acute left nixon radiata/subinsular region ischemic stroke with right facial drooping and dysarthria as well as mild receptive aphasia. 2. Cerebrovascular disease (old left thalamic lacunar infarcts). 3. Type 2 diabetes mellitus with neuropathy. 4. Diabetic gastroparesis. 5. Diabetic retinopathy (severe). 6. Dyslipidemia. 7. Hypertensive heart disease. HOSPITAL COURSE: This is a 59-year-old man, who initially was admitted to [facility] with diagnosis of left-sided stroke, likely in the middle cerebral artery distribution area. Upon the patient's presentation to an outside emergency room, he not only had dysarthria, confusion, right facial drooping, but also had right arm and right leg weakness. Upon arrival to [facility], the right arm and right leg weakness had resolved. He still had residual dysarthria, mild receptive aphasia as well as mild right facial droop. The patient was seen by neurologist, who confirmed left-sided stroke, who also diagnosed the patient with left-sided stroke likely in the middle cerebral artery distribution area. The patient underwent a CT of the head and as well as a CT angiogram of the brain at an outside facility, did not reveal any acute intracranial abnormalities. However, the brain MRI performed at [facility] did confirm focal acute ischemia in the left nixon radiata extending into the left subinsular region. Moreover, he was found to have a suspected subcentimeter left paramedian pontine acute lacunar infarct. Also, the MRI of the brain appreciated an old small left striatocapsular and left inferior thalamic lacunar infarcts. These old stroke findings on the MRI of the brain corroborate the 's narrative that the patient had been exhibiting intermittent stroke-like symptoms, particularly confusion over the last year. The patient's brief hospitalization was unremarkable. Once again, he was seen by a neurologist, namely Dr. Meli Oliva. The patient underwent a carotid Doppler ultrasound during this hospitalization that revealed no hemodynamically significant stenosis in the carotid system bilaterally. There was just minimal intimal thickening in the common carotid arteries bilaterally. The patient also underwent echocardiogram during this hospitalization that revealed findings consistent with diastolic heart failure with preserved left ventricular ejection fraction of 50% to 55%. No emboli or thrombi were appreciated. Moreover, no valvar disease was appreciated. The patient did receive physical therapy during this hospitalization. The patient was ambulating with physical therapy on day of discharge. The idea of inpatient rehabilitation was discussed with the patient and his . The family was adamant about discharging the patient home and having him proceed with outpatient physical therapy on a regular basis. CONDITION ON DISCHARGE: Stable with an overall fair prognosis. DISCHARGE MEDICATIONS: 1. Aspirin 325 mg daily. 2. Atorvastatin 80 mg at bedtime. 3. Lisinopril 20 mg daily. 4. Metoclopramide 5 mg p.o. t.i.d. with each meal. 5. Combigan 0.2%/0.5% one drop to each eye twice a day. 6. Xultophy (Tresiba/Victoza) 50 units/1.8 mg subcutaneous daily. FOLLOWUP INSTRUCTIONS: The patient was instructed to follow up with his attending, myself, Dr. Harmeet Resendiz within 1 week. Also prior to discharge, outpatient physical, occupational, and speech therapy was arranged at [facility]. MD CLOVER Cochran/CELESTEL /[id number] cc: Meli Oliva MD
== END 2019-08-18 13:26 | disposition home or self-care (01) | DRG 65 ==
LOC: ICU 19:08 → MED/SURG2 08-17 16:38
PROVIDERS: ADMIT Internal Medicine; ATTEND Internal Medicine
DX: I63.9 Cerebral infarction, unspecified (principal); G81.91 Hemiplegia, unspecified affecting right dominant side; E11.40 Type 2 diabetes mellitus with diabetic neuropathy, unspecified; E11.319 Type 2 diabetes mellitus with unspecified diabetic retinopathy without macular edema; E11.43 Type 2 diabetes mellitus with diabetic autonomic (poly)neuropathy; E11.42 Type 2 diabetes mellitus with diabetic polyneuropathy; K31.84 Gastroparesis; Z79.4 Long term (current) use of insulin; E78.5 Hyperlipidemia, unspecified; I63.89 Other cerebral infarction; R29.810 Facial weakness; Z86.73 Personal history of transient ischemic attack (TIA), and cerebral infarction without residual deficits
CPT/HCPCS: 36415; 70551; 71045; 80053; 80061; 82550; 82553; 82948; 83036; 84443; 84484; 85025; 85651; 86140; 92523; 93005; 93306; 93880; J1650; J7030

== ENCOUNTER 2019-09-12 13:38 | Outpatient (RCR) | payer MEDICARE, OTHER ==
[~2019-09-12 13:38] MED LIST: ASPIRIN325 MG PO; AZOPT10 ML OU; DORZOLAMIDE-TIM10 ML OU; LIPITOR20 MG PO; LISINOPRIL20 MG PO; REGLAN10 MG PO; REGLAN5 MG PO; XULTOPHY 100 UNI3 ML SQ
== END 2019-09-23 ==
LOC: PT 13:38
PROVIDERS: ATTEND Internal Medicine
DX: I69.351 Hemiplegia and hemiparesis following cerebral infarction affecting right dominant side (principal); R53.1 Weakness

== ENCOUNTER 2025-06-27 19:49 | Inpatient (IN) | payer MEDICARE ==
[~2025-06-27] VITALS: Ht 165.1 cm; Wt 77.1 kg
[2025-06-27] VITALS (10 sets, daily range): BP systolic 117–128; BP diastolic 66–76; PULSE 89–98; RESP 14–20; TEMP 97.8–98.4; O2SAT 92–99
[2025-06-27 20:05] LABS: BASOPHILS % 0.4 % (0.0-1.0); EOSINOPHILS % 0.6 % (0.0-6.0); LYMPHOCYTES % 26.7 % (18.0-39.1); MONOCYTES % 6.8 % (4.4-11.3); NEUTROPHILS % 65.1 % (38.7-80.0); RED CELL DISTRIBUTION WIDTH 14.0 % (11.7-14.4)
[2025-06-27] MEDS ORDERED: IOPAMIDOL 370 MG/ML 100 ML INFUS..BTL INJ ONE (20:14)
[2025-06-27 20:23] LABS: INR 0.88
[2025-06-27 20:26] LABS: EST GLOMERULAR FILTRATION RATE 25.0 ML/MIN (>=60)
[2025-06-27] MEDS: SODIUM CHLORIDE 0.9% 1000ML 1,000 ML IV STA ×2 (20:27→20:28)
[2025-06-27] MEDS ORDERED: TENECTEPLASE 50 MG VIAL IV ONE (20:36)
[2025-06-27] MEDS: SODIUM CHLORIDE 0.9% 1000ML 1,000 ML IV SCH (20:46)
[2025-06-27] MEDS: TENECTEPLASE FOR IV SOLN 50 MG KIT IV ONE ×2 (20:46→20:58)
[2025-06-27] MEDS ORDERED: OZEMPIC1 MG/0.71 (22:22)
[2025-06-27] MEDS ORDERED: LEVOTHYROXINE50 MCG PO (22:22)
[2025-06-27] MEDS ORDERED: PREGABALIN150 MG PO (22:22)
[2025-06-28] VITALS (29 sets, daily range): BP systolic 120–159; BP diastolic 72–102; PULSE 77–94; RESP 11–33; TEMP 97.9–98.3; O2SAT 86–100
[2025-06-28 05:12] LABS: BASOPHILS % 0.5 % (0.0-1.0); EOSINOPHILS % 0.8 % (0.0-6.0); LYMPHOCYTES % 36.3 % (18.0-39.1); MONOCYTES % 7.6 % (4.4-11.3); NEUTROPHILS % 54.5 % (38.7-80.0); RED CELL DISTRIBUTION WIDTH 14.0 % (11.7-14.4)
[2025-06-28 05:45] LABS: EST GLOMERULAR FILTRATION RATE 41.0 ML/MIN (>=60)
[2025-06-28] MEDS: INSULIN REGULAR, HUMAN 100 UNIT/1 ML SQ SCH (07:30)
[2025-06-28] MEDS ORDERED: DEXTROSE 50% SYRINGE 50 ML IV PRN ×2 (07:30→12:45)
[2025-06-28 09:03] LABS: CHOL/HDL RATIO 3.8 (3.9-4.7); LDL CHOLESTEROL 54.0 MG/DL (60-130)
[2025-06-28] MEDS: LEVOTHYROXINE SODIUM 50 MCG TAB PO SCH (09:23)
[2025-06-28] MEDS ORDERED: BENZONATATE 100 MG CAP PO PRN (12:45)
[2025-06-28] MEDS ORDERED: DIPHENHYDRAMINE HCL 25 MG CAP PO PRN (12:45)
[2025-06-28] MEDS ORDERED: SIMETHICONE 80 MG CHEW PO PRN (12:45)
[2025-06-28] MEDS ORDERED: HYDRALAZINE HCL 20 MG/ML VIAL IV PRN (12:45)
[2025-06-28] MEDS ORDERED: POTASSIUM CHLORIDE 20 MEQ TAB CR PO PRN (12:45)
[2025-06-28] MEDS ORDERED: DOCUSATE SODIUM 100 MG CAP PO PRN (12:45)
[2025-06-28] MEDS ORDERED: LIDOCAINE 4% PATCH TP PRN (12:45)
[2025-06-28] MEDS ORDERED: ALBUTEROL/IPRATROPIUM 3 ML NEB NEB PRN (12:45)
[2025-06-28] MEDS ORDERED: MELATONIN 5 MG TABLET PO PRN (12:45)
[2025-06-28] MEDS ORDERED: ONDANSETRON HCL INJ 2MG/ML 2ML 2 MG/ML VIAL IV PRN (12:45)
[2025-06-28] MEDS ORDERED: ACETAMINOPHEN 325 MG TAB PO PRN (12:45)
[2025-06-28] MEDS: ATORVASTATIN 40 MG TAB PO SCH (20:52)
[2025-06-29 03:27] VITALS: BP 137/84; PULSE 78; RESP 18; TEMP 98.3; O2SAT 99
[2025-06-29 05:38] LABS: BASOPHILS % 0.9 % (0.0-1.0); EOSINOPHILS % 1.6 % (0.0-6.0); LYMPHOCYTES % 32.0 % (18.0-39.1); MONOCYTES % 7.5 % (4.4-11.3); NEUTROPHILS % 57.6 % (38.7-80.0); RED CELL DISTRIBUTION WIDTH 13.8 % (11.7-14.4)
[2025-06-29 06:11] LABS: CHOL/HDL RATIO 3.4 (3.9-4.7); EST GLOMERULAR FILTRATION RATE 65.0 ML/MIN (>=60); LDL CHOLESTEROL 72.0 MG/DL (60-130); PHOSPHORUS 3.2 MG/DL (2.3-4.7)
[2025-06-29 07:37] VITALS: PULSE 85; RESP 16; O2SAT 96
[2025-06-29 08:00] VITALS: BP 137/84; PULSE 85; RESP 16; TEMP 98.3; O2SAT 96
[2025-06-29 08:29] VITALS: BP 141/107; PULSE 89; RESP 18; TEMP 98.9; O2SAT 99
[2025-06-29] MEDS: PANTOPRAZOLE SOD 40 MG TABEC PO SCH (09:52)
[2025-06-29 11:30] VITALS: BP 149/82; PULSE 96; TEMP 98.7; O2SAT 99
[2025-06-29] MEDS: CLOPIDOGREL BISULFATE 75 MG TAB PO SCH (12:36)
[2025-06-29] MEDS: ASPIRIN 81 MG ENTERIC COATED PO SCH (12:36)
[2025-06-29 13:32] VITALS: PULSE 83; RESP 16; O2SAT 98
[2025-06-29] MEDS ORDERED: ATORVASTATIN 40 MG TAB PO SCH (21:00)
== END 2025-06-29 19:30 | disposition home health service (06) | DRG 61 ==
LOC: ER 19:53 → ERHOLD 20:49 → ICU 22:10 → MED/SURG 06-28 12:53
PROVIDERS: ADMIT Internal Medicine; ATTEND Internal Medicine
DX: I63.9 Cerebral infarction, unspecified (principal); G93.41 Metabolic encephalopathy; G81.91 Hemiplegia, unspecified affecting right dominant side; E11.22 Type 2 diabetes mellitus with diabetic chronic kidney disease; I12.9 Hypertensive chronic kidney disease with stage 1 through stage 4 chronic kidney disease, or unspecified chronic kidney disease; E11.43 Type 2 diabetes mellitus with diabetic autonomic (poly)neuropathy; E11.42 Type 2 diabetes mellitus with diabetic polyneuropathy; E11.319 Type 2 diabetes mellitus with unspecified diabetic retinopathy without macular edema; E78.5 Hyperlipidemia, unspecified; N18.9 Chronic kidney disease, unspecified; R55 Syncope and collapse; R47.81 Slurred speech; R47.1 Dysarthria and anarthria; R47.01 Aphasia; K31.84 Gastroparesis; R29.703 NIHSS score 3; K21.9 Gastro-esophageal reflux disease without esophagitis; H54.8 Legal blindness, as defined in USA; Z79.82 Long term (current) use of aspirin; Z79.4 Long term (current) use of insulin; Z79.890 Hormone replacement therapy; Z86.73 Personal history of transient ischemic attack (TIA), and cerebral infarction without residual deficits
CPT/HCPCS: 36415; 70450; 70496; 70498; 70551; 71045; 80048; 80053; 80061; 82550; 82948; 83036; 83690; 83735; 83880; 84100; 84443; 84484; 85025; 85610; 85730; 93005; 93306; 94799; 99284; J2470; J3101; J7030; Q9967